=== PATIENT | male | born 1960 | race Caucasian/White ===

== ENCOUNTER → 2016-02-25 | Outpatient (CLI) | payer BC ==
--- NOTE | 2016-02-27 16:41 | DI ---
WHOLE BODY BONE SCAN WITH CT SPECT BONE SCAN OF THE ENTIRE SPINE, 02/25/2016 11:00 AM : Clinical History: Cervical spondylosis with radiculopathy; thoracic back pain with bulging of the tho racic intervertebral discs; lumbar back pain with bulging lumbar discs. Previous Exam: None at this facility. 3 hours after IV injection of 30 mCi of Lc50-TOL, SPECT images of the entire spine were obtained. Axi al, sagittal, and coronal projections were generated over each spine level. Upon completion of the SP ECT scan, a low dose CT scan of the same area was performed without IV contrast. Axial, sagittal, and coronal projections were also generated. Fused images of the CT and SPECT scans are also produced in all three planes. Whole body AP and PA images were obtained along with spot films of the forearms. CT AND SPECT CERVICAL SPINE SCANS: The vertebral bodies and disc spaces are unremarkable. Arthritic changes are present on the left side at C3-4 and C4-5 zygapophyseal joints. The SPECT scans of the cervical spine show a high degree of f ocal increased activity at these 2 locations. There is mild increased activity in the left sternoclav icular joint in the medial head of the clavicle. The CT scans show joint space narrowing with scleros is of the medial head of the left clavicle. There is mild increased activity in the right AC joint an d the CT scans demonstrate mild arthrosis. CT AND SPECT THORACIC SPINE SCANS: The vertebral bodies and disc spaces are unremarkable. Very mild focal increased activity is present in the right T6-7 and T8-9 apophyseal joints. There are right-sided anterolateral osteophytic spurrin g changes between T7-8 and T9-10 but only the T7-8 and T9-10 bone spurs show mild increased activity. CT and SPECT scans through the thoracic spine region are otherwise unremarkable. CT AND SPECT LUMBAR SPINE SCANS: There is disc space narrowing from L1-2 through L3-4 with arthritic changes in the apophyseal joints bilaterally at L5-S1. Both of these locations show focal modest increased activity on the SPECT scans . The remaining lumbar levels are unremarkable. WHOLE BODY BONE SCAN: AP and PA whole body bone scans are performed. Both kidneys are visualized. The same foci of increase d activity are noted in the cervical, thoracic, and lumbar spine regions as well as the left sternocl avicular joint and the right AC joint. There is also a small focus of increased activity in the left foot, probably at the first tarsometatarsal joint. Readin. There are concordant findings in the cervical spine involving the left C3-4 and C4-5 zygapophysea l joints were there are degenerative arthritic changes and moderate to moderately severe focal increa sed activity in the same joints suggesting these probably represent significant arthritic findings. 2. There are concordant findings in the lumbar spine bilaterally at L5-S1 with degenerative arthriti c changes of the apophyseal joints but with only modest increased activity on the SPECT scans suggest ing these represent mild arthritic change. 3. There is no significant abnormal activity on the SPECT scans of the thoracic spine and no signifi cant abnormality is noted on the CT scans. There are some bony spurring changes along the right anter olateral aspect from T7-8 to T9-10, but no significant increased activity is seen on the SPECT scans in these areas. 4. Mild to moderate arthritic disease is suspected in the right A/C joint and the left sternoclavicu lar joint.
== END ==
LOC: NM 10:44
PROVIDERS: ATTEND Neurological Surgery
DX: M25.521 Pain in right elbow (principal); M47.22 Other spondylosis with radiculopathy, cervical region; M51.26 Other intervertebral disc displacement, lumbar region; M51.24 Other intervertebral disc displacement, thoracic region; R32 Unspecified urinary incontinence; M19.012 Primary osteoarthritis, left shoulder; M19.011 Primary osteoarthritis, right shoulder
CPT/HCPCS: 72125; 72128; 72131; A9503

== ENCOUNTER 2016-03-15 12:17 | Day surgery (SDC) | payer BC ==
[~2016-03-15 12:17] MED LIST: BETAMET ACET/BETAMET NA PH 6 MG/1 ML - 5 ML IAC ONE; LIDOCAINE IM ONE; Lidocaine 1% 10 MG/ML - 20 ML VIAL IM ONE; Ropivacaine 0.2% VIAL 2 MG/ML VIAL IAC ONE; SODIUM BICARB IM ONE
[2016-03-15 13:20] VITALS: RESP 16; TEMP 96.8
--- NOTE | 2016-03-15 17:40 | GEN.OPNOTE ---
Facet Injection Procedure: Other (Left medial branch blocks of the C2-3 and C3-4 facet joints) Procedure Code - Neurosurgery: 60583 : Fluoroscopic Guidance, 92826 : C/T Spine Facet/Med, 1st, 89677 : C/T Spine Facet/Med, 2nd Preoperative Diagnosis: Left C2-3 and C3-4 facet arthropathy Postoperative Diagnosis: Same -: Consent: Rationale for procedure, nature of procedure, possible risks and benefits were discussed with the patient. Risks including allergic reaction to medications, known effects of steroid medications including transient elevations in blood sugar with aggravation of pre-existing diabetes and remote risk of aseptic necrosis of the hip. Infection or bleeding with potential risk of neurologic injury with weakness, paralysis or were all reviewed with the patient who wished to proceed. Anesthesia, sedation: No intravenous access or sedation was used. Physiologic monitoring of pulse and oxygen saturation was utilized. Procedure: The patient was placed in a right lateral decubitus position on the operating room table, prepped with Chloroprep and sterilely draped. The skin was anesthetized with 1% Buffered Xylocaine. Under fluoroscopic control a 25- gauge needle was advanced to the junction of the middle and inferior thirds of the lateral mass of C2, the C2-3 facet joint laterally, the junction of the superior and middle thirds of the C3 lateral mass, then midportion of the C3 lateral mass in the midportion of the C4 lateral mass. 1 mL of a mixture of Celestone (6mg/ml) and Ropivacaine was injected at each site.. lateral images of the final needle placement was obtained. The needles was removed and the patient returned to the post procedure recovery room where they were monitored for any side effects. Pain assessment: Preprocedure pain [3]/10, post procedure pain [0]/10. Discharge instructions: Patient was given a pain log to be filled out and returned. A delayed response to the steroids of 2-5 days was discussed.
== END 2016-03-15 13:20 | disposition home or self-care (01) ==
LOC: SDSC 12:17
PROVIDERS: ATTEND Neurological Surgery
DX: M12.88 Other specific arthropathies, not elsewhere classified, other specified site (principal)
CPT/HCPCS: 64490; 64491; 76000; J0702; J2795; J2001

== ENCOUNTER → 2016-06-06 | Outpatient (CLI) | payer BC ==
[2016-06-06 17:22] LABS: BASOPHILS # (AUTO) 0.01 10*3/UL; BASOPHILS % (AUTO) 0.2 % (0-1); EOSINOPHILS # (AUTO) 0.11 10*3/UL; HEMATOCRIT 42.2 % (42.0-52.0); HEMOGLOBIN 14.5 g/dL (14.0-18.0); LYMPHOCYTES # (AUTO) 1.55 10*3/uL; MEAN CORPUSCULAR HEMOGLOBIN 29.7 PG (27-31); MEAN CORPUSCULAR HGB CONC 34.4 g/dL (33-37); MEAN CORPUSCULAR VOLUME 86.5 FL (80-90); MEAN PLATELET VOLUME 10.6 FL (7.4-12.2); MONOCYTES # (AUTO) 0.36 10*3/UL (0.3-0.8); MONOCYTES % (AUTO) 6.7 % (5-15); NEUTROPHILS # (AUTO) 3.38 10*3/UL; NEUTROPHILS % (AUTO) 62.4 % (50-80); RED BLOOD COUNT 4.88 10^6/uL (4.70-6.10)
[2016-06-06 17:23] LABS: PLATELET MORPHOLOGY COMMENT NORMAL MORPHOLOGY (NORM); RBC MORPHOLOGY COMMENT NORMAL MORPHOLOGY (NORM); WBC MORPHOLOGY COMMENT NORMAL MORPHOLOGY (NORM)
[2016-06-06 17:41] LABS: BLOOD UREA NITROGEN 11 mg/dL (7-22); BUN/CREATININE RATIO 18.33 (6-20); CALCIUM 9.1 mg/dL (8.7-10.7); EST GLOMERULAR FILTRATION > 60 (>60 ml/min/1.73m(2)); SERUM ALBUMIN 4.2 g/dL (3.5-4.8)
[2016-06-06 17:42] LABS: C-REACTIVE PROTEIN < 0.5 mg/dL (0.0-0.9)
[2016-06-06 18:10] LABS: ERYTHROCYTE SEDIMENTATION RATE 3 MM/HR (0-15)
== END ==
LOC: MOB LAB 16:09
PROVIDERS: ATTEND Internal Medicine
DX: R63.4 Abnormal weight loss (principal); R68.81 Early satiety; M79.1 Myalgia; R14.0 Abdominal distension (gaseous); Z80.0 Family history of malignant neoplasm of digestive organs; Z12.5 Encounter for screening for malignant neoplasm of prostate
CPT/HCPCS: 36415; 80053; 83690; 84443; 85025; 85652; 86140; G0103

== ENCOUNTER → 2016-07-24 | Outpatient (CLI) | payer BC ==
[2016-07-24 12:52] LABS: BLOOD UREA NITROGEN 12 mg/dL (7-22); BUN/CREATININE RATIO 17.14 (6-20); EST GLOMERULAR FILTRATION > 60 (>60 ml/min/1.73m(2)); SERUM ALBUMIN 4.2 g/dL (3.5-4.8)
== END ==
LOC: LAB 11:09
PROVIDERS: ATTEND Internal Medicine
DX: R68.81 Early satiety (principal); R10.84 Generalized abdominal pain; R74.8 Abnormal levels of other serum enzymes; R94.5 Abnormal results of liver function studies; R63.4 Abnormal weight loss
CPT/HCPCS: 36415; 80053; 82728

== ENCOUNTER → 2016-08-01 | Outpatient (CLI) | payer BC ==
[2016-08-05 08:19] LABS: TTG AB IGA <1.2 U/mL (())
[2016-08-11 21:36] LABS: IGA, SERUM 107 mg/dL (61 - 356)
== END ==
LOC: MOB LAB 15:18
PROVIDERS: ATTEND Internal Medicine
DX: K59.1 Functional diarrhea (principal); R79.89 Other specified abnormal findings of blood chemistry
CPT/HCPCS: 36415; 81256; 81376; 82784; 83516

== ENCOUNTER 2016-08-14 08:29 | Day surgery (SDC) | payer BC ==
[~2016-08-14 08:29] MED LIST changes: -BETAMET ACET/BETAMET NA PH 6 MG/1 ML - 5 ML IAC ONE; +LIDOCAINE 2% VISCOUS(20 MG/1 ML) - 15 ML UD CUP PO ONE; -LIDOCAINE IM ONE; +LIDOCAINE W/ SODIUM BICARB 0.5 ML SYR ONE; +Lactated Ringers 1,000 ML PRIMARY IV ONE; -Lidocaine 1% 10 MG/ML - 20 ML VIAL IM ONE; -Ropivacaine 0.2% VIAL 2 MG/ML VIAL IAC ONE; -SODIUM BICARB IM ONE
[2016-08-14 08:58] VITALS: RESP 10
--- NOTE | 2016-08-14 09:21 | GEN.OPNOTE ---
EGD Operative Note Surgery Date: 08/14/16 Preoperative Diagnosis: Abdominal pain. Early saiety Postoperative Diagnosis: Hiatal hernia Procedure: Esophagogastroduodenoscopy Surgeon: Tutu Salgado MD Anesthesia Provider: Jonathan Ortiz CRNA Anesthesia Type: MAC Indications: Patient is in full very quickly. He also has no abdominal pain Findings: Esophagus: Olympus video EGD scope inserted in the posterior pharynx. Guidant esophagus under direct visualization. Patient had a long esophagus but there is no abnormal pathology. GE Junction : GE junction measured approximately 45 cm from incisors. Fundus : Scope retroflexed on itself revealing a normal fundus. Patient does have a small hiatal hernia Body : Body the stomach appeared to be normal except there appeared to be a small tightening and midportion of the stomach. Prepyloric : Prepyloric areas within normal limits Small Intestine : First second third portion of the small bowel appear to be normal. There is a lot of bile seen within the duodenum. Biopsies were taken to rule out celiac disease A lubricated flexible upper endoscope was inserted and passed through the esophagus and stomach into the duodenum. Pathology: Biopsies taken of the duodenum
[2016-08-14 10:27] VITALS: TEMP 96.9
== END 2016-08-14 09:55 | disposition home or self-care (01) ==
LOC: SDSC 08:29
PROVIDERS: ATTEND Surgery
DX: K44.9 Diaphragmatic hernia without obstruction or gangrene (principal); R68.81 Early satiety
CPT/HCPCS: 43235; J2704; J7120

== ENCOUNTER → 2016-08-21 | Outpatient (CLI) | payer BC ==
--- NOTE | 2016-08-21 10:25 | DI ---
CT ABDOMEN SCAN WITH IV CONTRAST, 08/21/2016 8:06 AM : Clinical History: Abdominal pain. Previous Exam: 10/25/2013. Scans are performed from the lower lung bases through the liver and kidneys with IV contrast. 85 ml o f Isovue 300 was injected IV. Low density oral barium contrast (Volumen - low density CT enterography oral contrast) was administered for all phases of the exam. The lung bases are clear. The liver is normal. The patient is status post cholecystectomy and the com mon bile duct measures 6 mm. The spleen size is at the upper limits of normal but otherwise has a nor mal appearance. There are punctate calcifications in the spleen and this typically is associated with previous exposure to to TB or histoplasmosis. Both adrenal glands and the pancreas are normal. Both kidneys are normal in size, shape, position and contour. There is no hydronephrosis or hydroureter. N o renal or ureteral calculi are present. There are no abnormal retrocrural or periaortic nodes. No as cites is present. READING: Normal CT abdomen scan. The spleen has punctate calcifications and this typically is associated with previous exposure to histoplasmosis or TB. CT PELVIS SCAN WITH IV CONTRAST, 08/21/2016 8:06 AM: Clinical History: See above. Previous Exam: 10/25/2013. Scans are performed from just superior to the umbilicus to the symphysis pubis with IV contrast. This is the same bolus of contrast used for the CT scans of the abdomen. Scans through the lower abdomen and pelvis show no masses or abnormal fluid collections. There is no adenopathy. The appendix is normal. There is a prominent amount of fat surrounding the ileocecal valv e consistent with a lipoma of the ileocecal valve. The small bowel and terminal ileum are normal. The colon is also normal. There is a very small umbilical hernia through which only mesenteric fat has h erniated. READING: Normal CT scan of the pelvis.
== END ==
LOC: CT 08:04
PROVIDERS: ATTEND Surgery
DX: R10.84 Generalized abdominal pain (principal); R68.81 Early satiety
CPT/HCPCS: 74177

== ENCOUNTER → 2016-09-12 | Outpatient (CLI) | payer BC ==
--- NOTE | 2016-09-12 16:18 | DI ---
XR BARIUM ENEMA W/AIR CONTRAST,09/12/2016 9:00 AM: Clinical History: Weight loss Previous Exam: None at this facility. Findings: [employer] images are obtained of the abdomen and pelvis demonstrating a nonobstructive bowel gas pattern. There is no subdiaphragmatic free air. Evaluation of the colon was obtained after administration of barium and air contrast. There are several colonic diverticula noted involving the sigmoid colon. The ascending colon, transverse colon and descending colon demonstrate normal course, caliber and muc osal pattern. There is noted filling defect or stricture. Impression: Normal barium enema.
== END ==
LOC: RAD 08:56
PROVIDERS: ATTEND Surgery
DX: R10.11 Right upper quadrant pain (principal); R63.4 Abnormal weight loss
CPT/HCPCS: 74280